=== PATIENT | male | born 1950 | race Caucasian/White ===

== ENCOUNTER 2025-04-22 14:36 | Outpatient (REF) | payer OTHER, SELFPAY ==
--- NOTE | ~2025-04-22 | XR_ITS ---
EXAMINATION: XR SACROILIAC JOINTS CLINICAL INFORMATION: M53.3 - Sacrococcygeal disorders, not elsewhere classified COMPARISON: None available. TECHNIQUE: AP and oblique views of the sacroiliac joints FINDINGS: Sclerosis, bilaterally pronounced on the left side with the minimal vacuum phenomenon. No acute cortical disruption. Eccentric sclerotic abnormality left femoral head. Vascular clips at the inferior aspect of the right symphysis pubis/inferior pubic ramus. Spondylosis L4-5 and L5-S1. XR/XR sacroiliac joint min 3V IMPRESSION: No gross sacroiliitis. 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 TECHNIQUE: AP oblique and lateral views. FINDINGS: Multilevel marginal osteophyte formation and endplate sclerosis throughout the axial skeleton. Grade 1 anterolisthesis at L3-4 and L4-5 level. Decreased intervertebral disc height at L5-S1. Facet joint hypertrophy at L4-5 and L5-S1. No acute cortical disruption. No lytic or blastic lesions. Vascular calcifications, aorta. IMPRESSION: Multilevel thoracolumbar spondylosis pronounced at L5-S1. Grade 1 anterolisthesis L4-5 and L3-4 levels. Atherosclerosis disease. Electronically signed by: Thad Rasheed MD 04/22/2025 03:50 PM EST
--- NOTE | ~2025-04-22 | XR_ITS ---
EXAMINATION: XR SACROILIAC JOINTS CLINICAL INFORMATION: M53.3 - Sacrococcygeal disorders, not elsewhere classified COMPARISON: None available. TECHNIQUE: AP and oblique views of the sacroiliac joints FINDINGS: Sclerosis, bilaterally pronounced on the left side with the minimal vacuum phenomenon. No acute cortical disruption. Eccentric sclerotic abnormality left femoral head. Vascular clips at the inferior aspect of the right symphysis pubis/inferior pubic ramus. Spondylosis L4-5 and L5-S1. XR/XR lumbar spine 4V min IMPRESSION: No gross sacroiliitis. 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 TECHNIQUE: AP oblique and lateral views. FINDINGS: Multilevel marginal osteophyte formation and endplate sclerosis throughout the axial skeleton. Grade 1 anterolisthesis at L3-4 and L4-5 level. Decreased intervertebral disc height at L5-S1. Facet joint hypertrophy at L4-5 and L5-S1. No acute cortical disruption. No lytic or blastic lesions. Vascular calcifications, aorta. IMPRESSION: Multilevel thoracolumbar spondylosis pronounced at L5-S1. Grade 1 anterolisthesis L4-5 and L3-4 levels. Atherosclerosis disease. Electronically signed by: Thad Rasheed MD 04/22/2025 03:50 PM EST
== END 2025-04-22 14:37 | disposition home or self-care (01) ==
LOC: HO.XRAY 14:36
PROVIDERS: PCP Family Medicine; Visit Provider Nurse Practitioner Family
DX: M47.817 Spondylosis without myelopathy or radiculopathy, lumbosacral region (principal); M51.362 Other intervertebral disc degeneration, lumbar region with discogenic back pain and lower extremity pain; M53.3 Sacrococcygeal disorders, not elsewhere classified; M43.16 Spondylolisthesis, lumbar region; M46.1 Sacroiliitis, not elsewhere classified; G89.29 Other chronic pain; M54.50 Low back pain, unspecified
CPT/HCPCS: 72110; 72202

== ENCOUNTER 2025-04-22 14:36 | Outpatient (AMB) | payer OTHER, SELFPAY ==
--- NOTE | 2025-04-22 14:43 | MHC.OFFVIS ---
Vital Signs 04/22/25 14:48 Height 5 ft 11 in Weight 190 lb BMI 26.5 BP 165/87 H Blood Pressure Location Rt brachial Position Sitting Pulse 79 Pulse Source Pulse Oximeter Pulse Oximetry (%) 97 Oxygen Delivery Method Room Air Intake Visit Reasons: Low back pain Intake Note: Pain today 09/09 Regulatory Assistant Required: No Accompanied by: Self / Same As Patient Allergies bee venom protein (honey bee) Allergy (Unknown, Verified 04/22/25 14:51) Unknown chlorthalidone Allergy (Unknown, Verified 04/22/25 14:51) hyponatremia Penicillins Allergy (Unknown, Verified 04/22/25 14:51) Unknown sildenafil (From Viagra) Allergy (Unknown, Verified 04/22/25 14:51) Tachycardia HPI Comments Details: The patient is a 74-year-old individual presenting for evaluation of chronic low back and left sacroiliac (SI) joint pain. The pain began approximately 5 years ago when the patient woke up one morning and was unable to walk without holding onto avalos and furniture. The pain is described as a dull, aching soreness localized to the lower back and left SI joint, which causes fatigue. There is no radiation of pain down the legs. The patient has tried multiple treatments with partial relief, including acupuncture, Pilates, and ongoing cranial sacral therapy, which has been helpful but not curative. The patient also tried child care counselor, which was not helpful, and physical therapy, and continues to perform the prescribed exercises daily. The patient takes diclofenac 50 mg twice daily, which only takes the edge off the pain, and uses medical marijuana for pain, which is partially helpful. The patient reports that activities like vacuuming, specifically moving furniture, exacerbate the pain. An X-ray was performed in 2022, but the patient has never seen the report. Past medical history is notable for a hereditary essential tremor on the left side, for which the patient declined a beta-mary due to a prior experience of feeling dopy with that class of medication for hypertension. The patient has a history of asthma that is no longer active, and had a right inguinal hernia repair in July and an infected molar extraction in December. 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 - Onset: Approximately 5 years ago, with an acute onset upon waking. - Location: Lower back and left sacroiliac (SI) joint. - Character: Dull ache, soreness, and hurting, which causes fatigue. - Radiation: No radiation into the legs. - Exacerbating factors: Activities such as vacuuming and moving furniture. - Relieving factors: Cranial sacral therapy provides some help. Medical marijuana helps with back pain. Diclofenac 50 mg twice daily only takes the edge off. - Interference with function: The patient can perform most job and home duties but is prevented from performing more strenuous activities like moving furniture. - Affect: The pain makes the patient feel tired. - Analgesia: The patient takes diclofenac 50 mg twice daily, which provides minimal relief, just takes the edge off. The patient uses medical marijuana for sleep, insomnia, and pain, which does help the back. Percocet provided complete pain relief after hernia and oral surgeries. - Adverse Effects: The patient does not report any side effects from current pain medications. The patient previously experienced feeling dopy while taking a beta-mary. - Activities of Daily Living: The patient remains independent, works as a music education director, and is active, walking a dog twice a day. The pain interferes with more strenuous activities like moving furniture while vacuuming. - Aberrant Drug Related Behaviors: No aberrant drug-related behaviors are noted. Oswestry Low Back Pain Disability Score=15 [facility] Medical History (Updated 04/24/25 @ 14:34 by CARLOS Posey) Acute hyperkalemia Low back pain Adenomatous colon polyp Essential tremor Bilateral hearing loss Hypertension Surgical History History of colonoscopy H/O right inguinal hernia repair Social History (Updated 04/22/25 @ 14:57 by Purnima Hensley) Patient Tobacco Use Status: Never used Tobacco Substance Use Type: Marijuana Current occupational status: employed Review of Systems Const Details: - Constitutional: Reports fatigue associated with exertion and pain. - Musculoskeletal: Reports chronic low back and left SI joint pain, described as a dull ache. Reports hip tightness when walking and stiffness during physical exam. Denies leg weakness or foot drop. - Neurological: Reports a hereditary essential tremor on the left side. Denies numbness or tingling in the feet. - General: Denies falls or trauma preceding the pain. All systems reviewed & are unremarkable except as noted in HPI and below Physical Exam Vital Signs: Last Vital Signs Pulse 79 04/22/25 14:48 BP 165/87 H 04/22/25 14:48 Pulse Ox 97 04/22/25 14:48 Oxygen Delivery Method Room Air 04/22/25 14:48 BMI result Body Mass Index 26.5 General: Appears afebrile. Alert and oriented. Mood and affect appropriate. Follows and participates in conversation appropriately. Respiratory effort is unlabored. No cough. Able to transition from sit to stand unassisted. Ambulates with bilaterally normal heel strike and toe off. General: Yes no CVA tenderness Back/Spine/Pelvis Other: Limited lumbar ROM due to pain. Lumbar extension reproduces moderate pain, flexion and bending reproduces mild to moderate pain. No midline TTP in cervical through lumber regions. Demonstrates 5/5 strength of quadriceps bilaterally as well as flexion/dorsiflexion of bilateral feet against resistance. 2+ pedal pulses bilaterally. Straight leg rise with dorsiflexion negative bilaterally. +2 patellar and achilles reflexes bilaterally. Facet loading test positive bilaterally. Annabella sign, Wing?s, Gaenslen, Pelvic compression and Stinchfield tests are positive on the left. No groin pain with I/E hip rotations. Mild TTP to both GTB, left>right. Valsalva maneuver negative. Back: no CVA tenderness Cervical Spine: cervical ROM normal, cervical muscular tenderness, No Cervical spine scars present and No Cervical spine tenderness Thoracic/Lumbar Spine: thoracic and lumbar spine normal to inspection, No Thoracic/lumbar spine scar(s), Lasegue's sign negative, straight leg raise negative bilaterally, pain with thoraco-lumbar ROM, paraspinal muscle tenderness on the left greater than right, thoraco-lumbar ROM limited, No thoracic spinal tenderness and No lumbar spinal tenderness Sacroiliac joints: on the right nontender and on the left tender to palpation Extrem General: Yes capillary refill normal, Yes no clubbing, cyanosis or edema and Yes no calf tenderness Results Reviewed Results Reviewed: XR SACROILIAC JOINTS 04/22/25 CLINICAL INFORMATION: M53.3 - Sacrococcygeal disorders, not elsewhere classified COMPARISON: None available. TECHNIQUE: AP and oblique views of the sacroiliac joints FINDINGS: Sclerosis, bilaterally pronounced on the left side with the minimal vacuum phenomenon. No acute cortical disruption. Eccentric sclerotic abnormality left femoral head. Vascular clips at the inferior aspect of the right symphysis pubis/inferior pubic ramus. Spondylosis L4-5 and L5-S1. IMPRESSION: No gross sacroiliitis. 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 XR LUMBOSACRAL SPINE 04/22/25 CLINICAL INFORMATION: M 47.817 -spondylosis without myelopathy or radiculopathy, lumbar sacral COMPARISON: None available. TECHNIQUE: AP oblique and lateral views. FINDINGS: Multilevel marginal osteophyte formation and endplate sclerosis throughout the axial skeleton. Grade 1 anterolisthesis at L3-4 and L4-5 level. Decreased intervertebral disc height at L5-S1. Facet joint hypertrophy at L4-5 and L5-S1. No acute cortical disruption. No lytic or blastic lesions. Vascular calcifications, aorta. IMPRESSION: Multilevel thoracolumbar spondylosis pronounced at L5-S1. Grade 1 anterolisthesis L4-5 and L3-4 levels. Atherosclerosis disease. Assessment & Plan Assessment & Plan (1) Lumbosacral spondylosis: Code(s): M47.817 - Spondylosis without myelopathy or radiculopathy, lumbosacral region Category: Medical (2) Low back pain: Code(s): M54.50 - Low back pain, unspecified Category: Medical (3) Chronic sacroiliac joint pain: Code(s): M53.3 - Sacrococcygeal disorders, not elsewhere classified; G89.29 - Other chronic pain Category: Medical (4) Spondylolisthesis, lumbar region: Code(s): M43.16 - Spondylolisthesis, lumbar region Category: Medical (5) Lumbar degenerative disc disease: Code(s): M51.369 - Other intervertebral disc degeneration, lumbar region without mention of lumbar back pain or lower extremity pain Category: Medical (6) Sacroiliitis: Code(s): M46.1 - Sacroiliitis, not elsewhere classified Category: Medical Plan Lumbar spine and sacroiliac joint xrays were completed after today's visit and noted above. The primary intervention proposed is a therapeutic left SI joint injection with steroids, to be performed under local and fluoroscopic guidance. Expectations, risks and benefits were reviewed. Patient is aware he will be contacted to schedule this procedure. Patient denies taking any anti-coagulants. For the component of back pain related to facet arthritis and degenerative disc disease, a future potential plan was discussed. This would involve diagnostic medial branch blocks, and if successful, could be followed by radiofrequency ablation or peripheral nerve stimulation for longer-term pain relief. All questions and concerns have been answered and patient agreed with the treatment plan. Follow up after injection and sooner as needed. Patient was informed and verbally consented to the use of an ambient scribe for clinic note documentation during this visit. Orders: Orders XR sacroiliac joint min 3V 04/22/25 G89.29 - Other chronic pain, M53.3 - Sacrococcygeal disorders, not elsewhere classified, M54.50 - Low back pain, unspecified XR lumbar spine 4V min 04/22/25 M47.817 - Spondylosis without myelopathy or radiculopathy, lumbosacral region Coding Level of Care Code New Pt Level 4 (60913) Diagnoses Lumbosacral spondylosis M47.817 Low back pain M54.50 Chronic sacroiliac joint pain M53.3; G89.29 Spondylolisthesis, lumbar region M43.16 Lumbar degenerative disc disease M51.369 Sacroiliitis M46.1
[2025-04-22 14:48] VITALS: BP 165/87; PULSE 79; O2SAT 97; BMI 26.5
--- OUTSIDE RECORDS SUMMARY | 2025-04-22 14:55 | XMS_ITS | Clinical Summary ---
Author Organization [facility] Address [address] [place] [id number] Phone Care Team Providers Care Glove Operator Name Role Phone Get Jamison MD Primary Care Prov ider Allergies Active Allergy Reactions Criticality Noted Date Comments Other Anaphylaxis High 06/17/2024 Insect stings Penicillins Anaphylaxis High 07/04/2017 Pollen Extracts Sneezing Low 12/22/2018 Sildenafil Palpitations High 07/04/2017 Medications candesartan (ATACAND) 8 MG tabletIndicatio ns:hypertension Take 32 mg by mouth daily. Indications: high blood pressure Active rye grass extract-quercet in 500-250 mg Tab Take by mouth daily. Active amLODIPine (NORVASC) 5 MG tablet Take 10 mg by mouth daily. 3 Active Medication-Free Text Molecular hydrogen tablets that dissolve in water Active Active Problems Problem Noted Date Diagnosed Date S/P inguinal hernia repair using synthetic patch 09/10/2024 Acute deep vein thrombosis ( DVT) of distal vein of left lower extremity 08/14/2017 Heterozygous factor V Leiden mutation 08/14/2017 Immunizations Immunization Administration Dates Next Due COVID-19 (Pre-03/24) Pfizer Vaccine, mRNA, PF 10/07/2020,09/13/2020 Influenza High-Dose Quadriva lent Preservative Free IM 03/07/2022,03/30/2021,04/08/2020 Influenza High-Dose Trivalen t Preservative Free IM 04/02/2024 Influenza Quadrivalent Adjuv anted Preservative Free IM 03/12/2023 Pneumococcal polysaccharide PPSV23 06/07/2019 Td (adult),2 Lf Tetanus Toxo id, PF, Adsorbed 01/28/2022 Td, unspecified formulation 04/14/2001 Tdap 10/18/2011 Zoster recombinant 07/15/2020,05/11/2020 Social History Tobacco Use Types Packs/Day Years Used Date Smoking Tobacco: Never Smokeless Tobacco: Never Alcohol Use Standard Drinks/Week Comments Yes 7 (1 standard drink = 0.6 oz pur e alcohol) Education Answer Date Recorded Are you interested in more education? Not on ivelisse e 09/27/2022 Are you concerned about learning? Not on file 09/27/2022 No 09/27/2022 No 09/27/2022 Digital Access Answer Date Recorded No 10/26/2022 No 10/26/2022 Reliable internet access at home? Not on file 10/26/2022 Device with a working camera? Not on file Sex and Gender Information Value Date Recorded Sex Assigned at Not on file Legal Sex Male 10:02 PM EDT Gender Identity Not on file Sexual Orientation Not on file Last Filed Vital Signs Vital Sign Reading Time Taken Comments Blood Pressure 129/60 08/09/2024 11:54 AM EDT Pulse 79 09/10/2024 3:23 PM EDT Temperature 36.7 C (98.1 F) 09/10/2024 3:23 PM EDT Respiratory Rate 15 08/09/2024 11:55 AM EDT Oxygen Saturation 97% 09/10/2024 3:23 PM EDT Inhaled Oxygen Concentration - - Weight 87.5 kg (193 lb) 07/29/2024 1:20 PM EST Height 182.9 cm (6') 07/29/2024 1:20 PM EST Body Mass Index 26.18 07/29/2024 1:20 PM EST Plan of Treatment Health Maintenance Due Date Last Done Comments LIPID PANEL 1950 DEPRESSION SCREENING 1961 HEPATITIS C SCREENING 11/11/1967 COLOGUARD 1994 FIT TEST 1994 FOBT 1994 SIGMOIDOSCOPY 1994 VIRTUAL COLONOSCOPY 1994 CREATININE LEVEL 07/04/2018 07/04/2017 POTASSIUM LEVEL 07/04/2018 07/04/2017 PNEUMOCOCCAL VACCINES (50+ years) (2 of 2 - PCV) 06/07/2020 06/07/2019 RSV VACCINE (1 - 1-dose 75+ series) 2024 INFLUENZA VACCINE (#1) 2024 , 03/12/2023, 03/07/2022, Additional history exists COVID-19 VACCINE (2024- season) 2025 04/02/2024, 04/09/2023, 02/19/2022, Additional history exists COLONOSCOPY 01/04/2029 01/04/2019 COLORECTAL CANCER SCREENING 01/04/2029 Adult Td,Tdap Booster 01/29/2032 01/28/2022 , 10/18/2011, 04/14/2001 ZOSTER VACCINES Completed 07/15/2020, 05/11/2020 SMOKING STATUS SCREENING (Once After 26 Yrs) Completed 09/10/2024 HEPATITIS A VACCINES Aged Out No long er eligible based on patient's age to complete this topic HIB VACCINES Aged Out No longer eligi ble based on patient's age to complete this topic MENINGOCOCCAL VACCINES (ACWY) Aged Out No longer eligible based on patient's age to complete this topic MENINGOCOCCAL VACCINES (B) Aged Out N o longer eligible based on patient's age to complete this topic Medical Devices Implanted Type Area Outdoor Adventure Leader Device Identifier Shelf Expiration Date Model / Serial / Lot Mesh Graft 1.6x1.9in 4.1 4.8cm Lg Perfix Polypropylene Monofilament Plug Inguinal Hernia Soft Tissue Repair /2ea - [id number] Implanted:Qty: 1 on 08/09/2024 by Norma Nunn MD at [facility] STANDARD Right: Groin [employer] 10/27/2028 [id number] / / [id number] Clip Hemostasis Resolution 360 Lf Nonsterile 2.8mm Channel 360deg 235cm Bx/20ea - [id number] Implanted:Qty: 1 on 01/04/2019 by Rubén Shearer MD at [facility] [employer] [id number] / / Procedures Procedure Name Priority Date/Time Associated Diagnosis Comments ENDOSCOPY, COLON 01/04/2019 9:57 AM EDT COMPREHENSIVE METABOLIC PANEL (CMP) Routine 07/04/2017 3:53 PM EST History of DVT in adulthood from Last 3 Months or Most Recently Relevant to Health Maintenance Results * ENDOSCOPY, COLON (01/04/2019 9:57 AM EDT) Narrative Transcriptions Rubén Shearer MD - 01/04/2019 9:57 AM EDT Patient Name: Warner Elmore Attending MD:: RUBÉN SHEARER MD, Procedure Date: 01/04/2019 9:57 AM Date of : 1950 Age: 68 Admit Type: Outpatient Gender: Male Room: [facility] Referring MD: Get Galindo MD Exam Type: Colonoscopy Indications: High risk colon cancer surveillance: Personal historyof colonic polyps Medications: Monitored Anesthesia Care Procedure: Informed consent was obtained from the patient after discussion of the indications, limitations,alternatives, benefits, and risks of the procedure. Risksspecifically discussed include but are not limited to medication reactions, missed lesions, bleeding, perforation, orthe need for emergent surgery. Throughout the procedure, the patient's blood pressure, pulse, end-tidal CO2, and oxygen saturations were monitored continuously. The Olympus adult variable colonoscope CF-[id number] #1 was introduced through the anus and advanced to the cecum, identified by appendiceal orifice and ileocecal valve.The colonoscopy was performed without difficulty. Thepatient tolerated the procedure well. The quality of the bowel preparation was excellent. The quality of the bowel preparation was evaluated using the BBPS ([place] Bowel Preparation Scale) with scores of: Right Colon = 3, Transverse Colon = 3 and Left Colon = 3 (entire mucosa seen well with no residual staining, small fragments of stool or opaque liquid). The total BBPS score equals9. Complications: No immediate complications. Estimated blood loss:Minimal. Findings: The perianal and digital rectal examinations werenormal. A 8 mm polyp was found in the cecum. The polyp was semi-pedunculated. The polyp was removed with a hotsnare. Resection and retrieval were complete. To preventbleeding after the polypectomy, one hemostatic clip was successfully placed (MR conditional). There was no bleeding at the end of the procedure. A 3 mm polyp was found in the transverse colon. Thepolyp was sessile. The polyp was removed with a cold biopsy forceps. Resection and retrieval were complete. A 6 mm polyp was found in the transverse colon. Thepolyp was semi-pedunculated. The polyp was removed with a hot snare. Resection and retrieval were complete. A 12 mm polyp was found in the sigmoid colon. The polyp was pedunculated. The polyp was removed with a hotsnare. Resection and retrieval were complete. A few small-mouthed diverticula were found in thesigmoid colon. The exam was otherwise normal throughout the examined colon. Impression: - One 8 mm polyp in the cecum, removed with a hotsnare. Resected and retrieved. Clip (MR conditional) wasplaced. - One 3 mm polyp in the transverse colon, removed witha cold biopsy forceps. Resected and retrieved. - One 6 mm polyp in the transverse colon, removed witha hot snare. Resected and retrieved. - One 12 mm polyp in the sigmoid colon, removed with ahot snare. Resected and retrieved. - Diverticulosis in the sigmoid colon. Recommendation: - Discharge patient to home. - Await pathology results. RUBÉN SHEARER MD, 01/04/2019 10:26:13 AM This report has been signed electronically. Number of Addenda: 0 Note Initiated On: 01/04/2019 9:57 AM Procedure Code(s): --- Professional --- 09028, Colonoscopy, flexible; with removal of tumor(s), polyp(s), or other lesion(s) by snare technique [id number], 59, Colonoscopy, flexible; with biopsy, single or multiple --- Technical --- 56487, Colonoscopy, flexible; with removal of tumor(s), polyp(s), or other lesion(s) by snare technique [id number], 59, Colonoscopy, flexible; with biopsy, single or multiple Diagnosis Code(s): --- Professional --- Z86.010, Personal history of colonic polyps D12.0, Benign neoplasm of cecum D12.3, Benign neoplasm of transverse colon (hepatic flexure orsplenic flexure) D12.5, Benign neoplasm of sigmoid colon K57.30, Diverticulosis of large intestine without perforation orabscess without bleeding --- Technical --- Z86.010, Personal history of colonic polyps D12.0, Benign neoplasm of cecum D12.3, Benign neoplasm of transverse colon (hepatic flexure orsplenic flexure) D12.5, Benign neoplasm of sigmoid colon K57.30, Diverticulosis of large intestine without perforation orabscess without bleeding CPT copyright 2016 [employer]. All rights reserved. The codes documented in this report are preliminary and upon supplier manager reviewmay be revised to meet current compliance requirements. [address] [place] [address] Get Galindo MD GI PROCEDURE ORDER TEO Final Result * (ABNORMAL) Comprehensive metabolic panel (07/04/2017 3:53 PM EST) SODIUM 137 133 - 146 mmol/L [facility] POTASSIUM 4.9 3.3 - 5.1 mmol/L [facility] CHLORIDE 100 96 - 108 mmol/L [facility] CO2 26 21 - 35 mmol/L [facility] BUN 16 6 - 19 mg/dL [facility] CREATININE 1.00 0.5 - 1.5 mg/dL [facility] GLUCOSE 103(H) 70 - 99 mg/dL [facility] ALBUMIN 4.5 3.9 - 4.8 g/dL [facility] TOTAL PROTEIN 7.4 6.5 - 8.0 g/dL [facility] CALCIUM 9.7 8.4 - 10.3 mg/dL [facility] ALKALINE PHOSPHATASE 71 39 - 117 U/L [facility] TOTAL BILIRUBIN 0.4 0 - 1.2 mg/dL [facility] AST 22 0 - 37 U/L [facility] ALT 24 0 - 40 U/L [facility] GLOBULIN 2.9 1 - 4.8 g/dL [facility] EGFR >60 60 - 1000 mL/min/1.7 3m2 [facility] Comment:Abnormal if <60. If patient is -[place], multiply the result by 1.21. ANION GAP 16 10 - 20 mmol/L [facility] Blood 07/04/2017 3:53 PM EST 07/04/2017 4:04 PM EST us Gabby Albarran DO LAB BLOOD BKR ORDERABLES F inal Result [facility] [address] [place] [address] from Last 3 Months or Most Recently Relevant to Health Maintenance Insurance CIGNA PPO CIGNA PPO CIGNA PPO CIGNA PPO CIGNA PPO CIGNA PPO CIGNA PPO CIGNA PPO CIGNA PPO Advance Directives For more information, please contact: [phone] (9AM - 5PM [facility], Friday-Friday) * Full Code (Latest Code Status on File) Date Activated Date Inactivated Comments 08/09/2024 7:40 AM Question Answer Comments Code Status Confirmed With: Patient Care Teams Glove Operator Relationship Specialty Start Date End Date Get Jamison MD PCP - General Family Medicine 12/28/18 Additional Source Comments The information contained in this document represents components of the legal health record. It is not the complete legal health record.[facility]
--- OUTSIDE RECORDS SUMMARY | 2025-04-22 14:55 | XMS_ITS | Encounter Summary ---
Author Organization [facility] Address [address] [place] [phone] Phone Care Team Providers Care Cosmetic Sales Advisor Name Role Phone Get Jamison MD Primary Care Prov ider Encounter Details Date Type Department Care Team (Late st Contact Info) Description 08/09/2024 Procedure Pass OR Admitting Dept - Virtual Department [address] [place] [address] Social History Tobacco Use Types Packs/Day Years [...] on file Sexual Orientation Not on file documented as of this encounter Plan of Treatment Not on file documented as of this encounter Visit Diagnoses Not on filedocumented in this encounter Care Teams Cosmetic Sales Advisor Relationship Specialty Start Date End Date Get Jamison MD PCP - General Family Medicine 12/28/18 documented as of this encounter Additional Source Comments The information contained in this document represents components of the legal health record. It is not the complete legal health record.[facility]
--- OUTSIDE RECORDS SUMMARY | 2025-04-22 14:55 | XMS_ITS | Encounter Summary ---
Author Organization [facility] Address [address] [place] [phone] Phone Care Team Providers Care Inspector Integrated Circuits Name Role Phone Get Jamison MD Primary Care Prov ider Encounter Details Date Type Department Care Team (Late st Contact Info) Description 06/18/2024 Prep for Surgery [facility] General Surgical Care [address] [place] [address] Norma Nunn MD [address] [facility] [facility] [facility], 2nd [place] [address] [email or web address] Non-recurrent unilateral inguinal hernia without obstruction or gangrene (Primary Dx) Social History Tobacco Use Types Packs/Day Years [...] documented as of this encounter Visit Diagnoses Diagnosis Non-recurrent unilateral inguinal hernia without obstruction or gangrene- Primary documented in this encounter Care Teams Inspector Integrated Circuits Relationship Specialty Start Date End Date Get Jamison MD [email or web address] PCP - General Family Medicine 12/28/18 documented as of this encounter Additional Source Comments The information contained in this document represents components of the legal health record. It is not the complete legal health record.[facility]
--- OUTSIDE RECORDS SUMMARY | 2025-04-22 14:55 | XMS_ITS | Encounter Summary ---
Author Organization [facility] Address [address] [place] [phone] Phone Care Team Providers Care Infrastructure Consultant Name Role Phone Get Jamison MD Primary Care Prov ider Encounter Details Date Type Department Care Team (Late st Contact Info) Description 01/04/2019 Procedure Pass [facility] Endoscopy Admitting Dept Virtual Department [address] [place] [address] Social History Tobacco Use Types Packs/Day Years Used Date Smoking Tobacco: Never Smokeless Tobacco: Never Alcohol Use Standard Drinks/Week Comments Yes 7 (1 standard drink = 0.6 oz pur e alcohol) Sex and Gender Information Value Date Recorded Sex Assigned at Not on file Legal Sex Male 10:02 PM EDT Gender Identity Not on file Sexual Orientation Not on file documented as of this encounter Plan of Treatment Not on file documented as of this encounter Visit Diagnoses Not on filedocumented in this encounter Care Teams Infrastructure Consultant Relationship Specialty Start Date End Date Get Jamison MD PCP - General Family Medicine 12/28/18 documented as of this encounter Additional Source Comments The information contained in this document represents components of the legal health record. It is not the complete legal health record.[facility]
== END 2025-04-22 15:06 | disposition home or self-care (01) ==
LOC: HO.PMC 14:36
PROVIDERS: PCP Family Medicine; Visit Provider Nurse Practitioner Family
DX: M47.817 Spondylosis without myelopathy or radiculopathy, lumbosacral region (principal); M54.50 Low back pain, unspecified; M53.3 Sacrococcygeal disorders, not elsewhere classified; G89.29 Other chronic pain; M43.16 Spondylolisthesis, lumbar region; M51.369 Other intervertebral disc degeneration, lumbar region without mention of lumbar back pain or lower extremity pain; M46.1 Sacroiliitis, not elsewhere classified
CPT/HCPCS: 99204

== ENCOUNTER → 2025-04-22 15:21 | Outpatient (BNV) | payer OTHER, SELFPAY | PROVIDERS: PCP Family Medicine; Visit Provider Radiology Diagnostic Radiology | DX: M47.817 Spondylosis without myelopathy or radiculopathy, lumbosacral region (principal); M53.3 Sacrococcygeal disorders, not elsewhere classified | CPT/HCPCS: 72110; 72202 ==